=== PATIENT | female | born 2000 | race Caucasian/White ===

== ENCOUNTER 2025-10-14 13:43 | Outpatient (CLI) | payer BC, SELFPAY | END 2025-10-14 13:44 | disposition home or self-care (01) | LOC: NFLDREF 10-22 00:20 | PROVIDERS: Visit Provider Registered Nurse | DX: Z34.92 Encounter for supervision of normal pregnancy, unspecified, second trimester (principal) | CPT/HCPCS: 87086 ==

== ENCOUNTER 2025-11-06 14:15 | Outpatient (CLI) | payer BC, SELFPAY | END 2025-11-06 14:16 | disposition home or self-care (01) | LOC: NFLDREF 11-10 15:26 | PROVIDERS: Visit Provider Midwife | DX: Z34.93 Encounter for supervision of normal pregnancy, unspecified, third trimester (principal) | CPT/HCPCS: 86706; 86780 ==

== ENCOUNTER 2025-11-17 08:19 | Outpatient (CLI) | payer BC, SELFPAY | END 2025-11-17 08:20 | disposition home or self-care (01) | LOC: NFLDREF 11-23 00:49 | PROVIDERS: Visit Provider Midwife | DX: O99.810 Abnormal glucose complicating pregnancy (principal) | CPT/HCPCS: 82951; 82952 ==

== ENCOUNTER 2025-11-19 08:35 | Outpatient (CLI) | payer BC, SELFPAY ==
[2025-11-19 09:13] VITALS: PULSE 94; O2SAT 100
[2025-11-19 09:18] VITALS: PULSE 91; O2SAT 97
[2025-11-19 09:23] VITALS: PULSE 75; O2SAT 97
[2025-11-19 09:24] VITALS: BMI 28.4
[2025-11-19 09:30] VITALS: BP 116/64; PULSE 79
[2025-11-19 09:37] VITALS: RESP 16; TEMP 37.1
--- NOTE | 2025-11-19 10:09 | PC.OBNST ---
NST Note NST Note Start: 11/19/25 09:22 Freq: ONCE Status: Active Protocol: Document 11/19/25 09:22 [facility] (Rec: 11/19/25 10:08 [facility] No Response) NST Note 1 Para (# of births) 0 EDC 01/25/26 Gestational Age In 30 Weeks & 3 Days Weeks & Days Patient Presented Decreased movement with Complaint(s) of Reactive Yes Appropriate for Yes Gestational Age RN Case RN Date 11/19/25 Reactive Yes Appropriate for Yes Gestational Age RN Port RN Date 11/19/25 OB NST charge Yes Complete NST Note Yes via Write Note The provider's electronic signature indicates the NST is reactive/appropriate for gestational age. *Note to provider: If an addendum is required, open the patient's chart and click on the note under the Nurse/Allied Health tab.
== END 2025-11-19 10:05 | disposition home or self-care (01) ==
LOC: OB OUT 08:39 → OB 09:09
PROVIDERS: Visit Provider Advanced Practice Midwife
DX: O36.8130 Decreased fetal movements, third trimester, not applicable or unspecified (principal); Z3A.30 30 weeks gestation of pregnancy
CPT/HCPCS: 59025; G0463